=== PATIENT | female | born 1990 | race Caucasian/White ===

== ENCOUNTER → 2016-11-13 | Outpatient (CLI) | payer BC ==
[~2016-11-13] MED LIST: FAMO-18 PO
--- NOTE | 2016-11-16 14:49 | SP ---
DATE OF PROCEDURE: 11/13/2016 INDICATION: A 25-year-old lady with history of epilepsy, last episode 10 years ago, lately having syncopal episodes. No medications. DESCRIPTION OF PROCEDURE: Routine EEG was recorded digitally. Tqzve-[id number] and fgyun-kk-dvh juan ages were recorded and reviewed. All impedances were measured and recorded. Cap electrodes were pl aced in accordance with International 10-20 system of electrode placement. FINDINGS: Symmetrically distributed background activity of medium amplitude ranging in frequency be tween 9 to 11 cycles per second in the awake state. This activity attenuates with eye opening. Natali tic stimulation produces normal driving. Hyperventilation elicits no epileptiform activity. When t he patient gets drowsy and falls asleep, background rhythm gets less organized, partially replaced o r intermixes with slower waves 2 to 4 cycles per second. Occasional vertex waves were seen. No epileptiform transients were seen. No signs of ongoing electrographic seizures or lateralized sl owing. IMPRESSION: Normal study. Correlate clinically. Dictated By: RUBEN URBINA/POLLO Conf#: [id number] DID#: [id number]
== END | disposition home or self-care (01) ==
LOC: EEG 13:11
PROVIDERS: ATTEND Family Medicine Adult Medicine
DX: G40.909 Epilepsy, unspecified, not intractable, without status epilepticus (principal)
CPT/HCPCS: 95819